=== PATIENT | male | born 1960 | race Caucasian/White ===

== ENCOUNTER 2020-12-04 07:25 | Emergency (ER) | payer OTHER ==
[2020-12-04] MEDS ORDERED: ULTRAM50 MG PO (08:41)
[2020-12-04] MEDS ORDERED: ZESTRIL2.5 MG PO (08:41)
== END 2020-12-04 08:53 | disposition home or self-care (01) ==
LOC: FER 07:25
DX: S39.012A Strain of muscle, fascia and tendon of lower back, initial encounter (principal); S46.912A Strain of unspecified muscle, fascia and tendon at shoulder and upper arm level, left arm, initial encounter; B35.4 Tinea corporis; R03.0 Elevated blood-pressure reading, without diagnosis of hypertension; V49.40XA Driver injured in collision with unspecified motor vehicles in traffic accident, initial encounter; Y92.410 Unspecified street and highway as the place of occurrence of the external cause
CPT/HCPCS: 72100; 73030